=== PATIENT | male | born 1980 | race Caucasian/White ===

== ENCOUNTER 2017-03-25 10:26 | Emergency (ER) | payer BC ==
[~2017-03-25] VITALS: Ht 177.8 cm; Wt 90.7 kg
--- NOTE | ~2017-03-25 | CT2 ---
[facility] A Service of [facility] & [facility] RADIOLOGY TEXT RESULTS PATIENT: MING ZUNIGA JR LOCATION: [facility] : 78 UNIT #: [id number] AGE: [address]: Luis Tamez MD SEX: M ORDER DR: [id number] [facility] [address] [place], [place] [address] [id number] E MR#: [id number] Acc #: [id number] NAME: MING ZUNIGA : 1980 SEX: M STUDY DATE/TIME: 03/25/2017 UNIT: [facility] ROOM: STUDY DESCRIPTION: CT Abd and Pelv W Cont Attending Physician: Deni Tamez M.D. Referring Physician: Luis Fernando Grady M.D. Ordering Physician: Ed Salas Davis M.D. Primary Care Physician: Luis Fernando Grady M.D. MEDICAL IMAGING REPORT This report is preliminary unless electronic signature is present EXAM CT abdomen and pelvis with contrast 03/25/2017 1229 hours HISTORY Left upper quadrant pain since 03/24/2017, left mid abdominal pain for a week. Nausea today. COMPARISON 09/29/[address] images were obtained from the lung bases through the pubic symphysis. Sagittal and coronal reconstructions were performed. Oral and intravenous contrast were administered. Isovue-370, 100 mL IV. Total exam DLP 834 mGy-cm. This CT exam was performed with one or more of the following radiation dose reduction techniques: automatic exposure control, adjustment of mA and/or kV according to patient size, and iterative reconstruction. FINDINGS Images through the lung bases are clear. There are no effusions. The distal esophagus is normal. The liver, spleen, pancreas, gallbladder, bile ducts and adrenal glands are normal. The right kidney is normal. The left kidney demonstrates no mass. There is a stable stone in the posterior upper to mid kidney, measuring just 2 mm. There is a punctate stone in the lateral lower pole, new from 09/29/2010. There is no ureterectasis or ureteral calculus. The stomach is moderately well-distended and opacified appears normal. The small bowel is partially opacified with contrast. There is no small bowel distension or small bowel wall thickening. The terminal ileum, cecum and appendix are normal. [facility] A Service of [facility] RADIOLOGY TEXT RESULTS PATIENT: MING ZUNIGA JR LOCATION: [facility] : 78 UNIT #: [id number] AGE: [address]: Luis Tamez MD SEX: M ORDER DR: The colon is opacified from the cecum to the distal descending colon and appears normal. There are a few diverticula in the mid sigmoid colon without CT evidence of acute diverticulitis. The seminal vesicles, prostate and rectum appear normal. IMPRESSION 1. No acute findings in the abdomen or pelvis. There are 2 very tiny nonobstructing stones in the left kidney. The one in the upper to mid kidney is unchanged from 2010, and the punctate stone in the lower pole is new. There is no ureterectasis or ureteral calculus. 2. There is diverticulosis of the sigmoid colon without evidence of acute diverticulitis. 3. Normal gallbladder, bile ducts and pancreas. 4. Normal appendix. 5. No lumbar compression fracture. 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 Dictated by... Mary Grace Orlando M.D. THIS IS AN ELECTRONICALLY VERIFIED REPORT Mary Grace Orlando M.D. at 03/26/2017 9:31 AM Ángel TD: 03/25/2017 19:19 JOB #: [id number] MEDICAL IMAGING REPORT Page 1 of 1 COPY
[2017-03-25 11:09] LABS: BASOPHIL# 0.1 X10e3 (0-0.3); BASOPHIL% 0.7 % (0-2.5); EOSINOPHIL# 0.7 X10e3 (0-0.7); EOSINOPHIL% 8.3 % (0.0-7.0); HEMATOCRIT 45.3 % (38.0-50.0); HEMOGLOBIN 15.8 gm/dL (13.0-16.0); LYMPHOCYTE# 3.2 X10e3 (1.0-3.5); LYMPHOCYTE% 40.8 % (17.0-45.0); MEAN CELL VOLUME 86.4 FL (83-96); MEAN CORPUSCULAR HEMOGLOBIN 30.1 PG (28-34); MEAN CORPUSCULAR HGB CONC 34.8 g/dL (30-36); MEAN PLATELET VOLUME 7.8 FL (6.5-11.5); MONOCYTE# 0.5 X10e3 (0-1.0); NEUTROPHIL# 3.5 X10e3 (1.5-7.1); NEUTROPHIL% 44.2 % (40-75); PLATELET COUNT 247 X10e3 (140-420); RED BLOOD COUNT 5.24 X10e (3.90-5.60); RED CELL DISTRIBUTION WIDTH 12.7 % (11.0-15.5); WHITE BLOOD COUNT 7.9 X10e3 (4.0-10.5)
[2017-03-25 11:10] LABS: DIFF IND NO
[2017-03-25 11:49] LABS: ALBUMIN SERUM 4.2 g/dL (3.5-5.0); BILIRUBIN, DIRECT 0.1 mg/dL (0.0-0.2); BILIRUBIN,INDIRECT 0.9 mg/dL (0.0-0.9); BUN/CREATININE RATIO 15.55; CALCIUM SERUM 9.2 mg/dL (8.4-10.2); CREATININE SERUM 0.9 mg/dL (0.6-1.4); GLOM FILT RATE Estimated 108.7 mL/min (>60); POTASSIUM 3.9 mmol/L (3.5-5.1); PROTEIN TOTAL SERUM 7.2 g/dL (6.0-8.3)
[2017-03-25 12:18] LABS: URINE SOURCE CLEAN CATCH
[2017-03-25 12:24] LABS: URINE APPEARANCE CLEAR; URINE BILIRUBIN NEG (NEG); URINE BLOOD TRACE (NEG); URINE COLOR YELLOW; URINE GLUCOSE NEG (NEG); URINE KETONE NEG (NEG); URINE LEUKOCYTE ESTERASE NEG (NEG); URINE NITRATE NEG (NEG); URINE PH 6.5 (5-8); URINE PROTEIN NEG (NEG); URINE SPECIFIC GRAVITY 1.006 (1.003-1.035); URINE UROBILINOGEN 0.2 MG/DL (NEG)
[2017-03-25 12:27] LABS: URBCS1 AUWI 0-2 /[HPF] (0-2); URINE BACTERIA AUWI NEG (NEGATIVE); URINE SQUAMOUS EPITHELIAL CELL NONE SEEN /[HPF]; UWBCS1 AUWI 0-2 (0-5)
[2017-03-25 12:34] LABS: CULTURE INDICATED? NO
== END 2017-03-25 14:38 | disposition home or self-care (01) ==
LOC: CED 10:26
PROVIDERS: Emergency Medicine
DX: R10.12 Left upper quadrant pain (principal)
CPT/HCPCS: 36415; 74177; 80048; 80076; 81003; 82150; 83690; 85025; 99284; Q9967